=== PATIENT | female | born 1975 | race Caucasian/White ===

== ENCOUNTER → 2018-06-27 | Outpatient (CLI) | payer BC ==
--- NOTE | 2018-06-27 13:12 | XR ---
EXAMINATION TYPE: XR chest 1V DATE OF EXAM: 06/27/2018 COMPARISON: NONE HISTORY: COUGH TECHNIQUE: Single frontal view of the chest is obtained. FINDINGS: There is no focal air space opacity, pleural effusion, or pneumothorax seen. The cardiac silhouette size is within normal limits. The osseous structures are intact. Biapical pleural thicke joaquín. IMPRESSION: No acute process.
== END ==
LOC: RADXRMAIN 12:43
PROVIDERS: ATTEND Internal Medicine Rheumatology
DX: R05 Cough (principal)
CPT/HCPCS: 71045

== ENCOUNTER → 2021-01-18 | Outpatient (CLI) | payer BC ==
--- NOTE | 2021-01-19 10:14 | MM ---
Reason for exam: screening (asymptomatic). History: Family history of breast cancer in maternal aunt at age 48. Retro-pectoral silicone gel implants in both breasts, 2018. Took hormonal contraceptives for 14 years. Physical Findings: A clinical breast exam by your physician is recommended on an annual basis and results should be correlated with mammographic findings. MG 3D Screen Mammo Imp/Cad Bilateral CC, MLO, and ID view(s) were taken. No prior studies available for comparison. The breast tissue is heterogeneously dense. This may lower the sensitivity of mammography. Bilateral well circumscribed asymmetries. Bilateral retropectoral silicone implants limit compression and obscure portions of the breasts. ASSESSMENT: Benign, BI-RAD 2 RECOMMENDATION: Routine screening mammogram of both breasts in 1 year.
== END | disposition home or self-care (01) ==
LOC: RADMAMWWP 09:48
PROVIDERS: ATTEND Family Medicine
DX: Z12.31 Encounter for screening mammogram for malignant neoplasm of breast (principal); Z80.3 Family history of malignant neoplasm of breast
CPT/HCPCS: 77063; 77067